=== PATIENT | female | born 1975 | race Caucasian/White ===

== ENCOUNTER 2018-12-19 08:24 | Day surgery (SDC) | payer BC, SELFPAY ==
[2018-12-17 16:12] VITALS: BMI 20.7
--- NOTE | 2018-12-19 | DI.RAD.S_ITS ---
PROCEDURE: XR ANKLE LT 2V INDICATIONS: LEFT ANKLE ORIF TECHNIQUE: 3 views of the left ankle and 2 views of the right ankle were acquired. COMPARISON: [facility] Outside Film, CR, XR TIBIA FIBULA LEFT, 12/13/2018, 15:01. SNO Outside Film, CR, XR ANKLE 3+ VIEWS LEFT, 12/13/2018, 15:01. FINDINGS: 5 intraoperative fluoroscopic views demonstrate a lateral fixation plate in the distal left fibular diaphysis with 2 fixation screws traversing the distal tibiofibular syndesmosis. No definite fracture visualized. IMPRESSION: 1. Intraoperative images demonstrate ORIF of the distal left fibula with fixation screws traversing the tibiofibular syndesmosis. Dictated by: Franco Alexandra M.D. on 12/19/2018 at 11:11 Approved by: Franco Alexandra M.D. on 12/19/2018 at 11:15
[2018-12-19 08:45] VITALS: BMI 21.4
--- NOTE | 2018-12-19 08:47 | PM.PREOP ---
Pre-operative Note Interval Note History & Physical reviewed/Exam performed by Physician: Yes Changes to H&P: No
[2018-12-19 09:01] VITALS: BP 113/79; PULSE 83; RESP 16; TEMP 36.3; O2SAT 95
[2018-12-19] MEDS: LACTATED RINGERS 1,000 ML 42 ML IV (09:02)
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
[2018-12-19] MEDS: CEFAZOLIN 2 GM/100 ML FROZ.PIGGY IV (09:30)
--- NOTE | 2018-12-19 09:54 | SUR.OPER ---
Supine on padded OR bed, head on pillow, arms secured on padded arm boards at <90 degrees abduction, legs uncrossed, safety belt at thigh, tape over blanket over lower legs.
[2018-12-19] MEDS: BUPIVACAINE 0.5% (PF) VIAL 30 ML INJ (10:07)
[2018-12-19 10:41] VITALS: BP 114/69; PULSE 87; RESP 14; TEMP 37.1; O2SAT 94
[2018-12-19 10:46] VITALS: BP 112/70; PULSE 80; RESP 14; O2SAT 98
[2018-12-19 10:53] VITALS: BP 117/66; PULSE 72; RESP 12; TEMP 37.1; O2SAT 97
[2018-12-19 10:55] VITALS: BP 114/79; PULSE 79; RESP 11; O2SAT 97
== END 2018-12-19 11:25 | disposition home or self-care (01) ==
PROVIDERS: PCP Nurse Practitioner Family; Visit Provider Orthopaedic Surgery Foot and Ankle Surgery
PROC: (CPT 27829; principal; 2018-12-19 09:45)
DX: S82.862A Displaced Maisonneuve's fracture of left leg, initial encounter for closed fracture (principal); S93.432A Sprain of tibiofibular ligament of left ankle, initial encounter; Y93.55 Activity, bike riding; W18.01XA Striking against sports equipment with subsequent fall, initial encounter
CPT/HCPCS: 27829; 73600; 76000; J0690; J1100; J2250; J2405; J2704; J3010

== ENCOUNTER → 2025-02-26 14:37 | Outpatient (CLI) | payer BC, SELFPAY ==
--- NOTE | 2025-02-26 14:39 | DI.MG.S_ITS ---
MM screening mammo BI: 02/26/2025. BI-RADS: 1 CLINICAL: 49-year old female for bilateral screening mammogram. Tyrer-Cuzick lifetime risk of 7.3%. No personal or first-degree family history of breast cancer. PRIOR EXAMS 07/16/2022. MAMMOGRAPHY TECHNIQUE: 2D and 3D (tomosynthesis) digital mammographic views obtained, with additional images as needed for full coverage. Current study was also evaluated with a Computer Aided Detection (CAD) system. DENSITY C. The breasts are heterogeneously dense, which may obscure small masses. MAMMOGRAPHY FINDINGS Bilateral: No suspicious mass, asymmetry, microcalcification, or other abnormality seen. IMPRESSION: * No evidence of malignancy. RECOMMENDATIONS Bilateral * Annual screening mammography. OVERALL ASSESSMENT CATEGORY BI-RADS-1: Negative. [employer] recommends annual screening mammography beginning at age 40 for women with average risk of breast cancer. ELECTRONICALLY SIGNED: Kate Adams M.D. on 02/28/2025 at 04:09:20 PM PT Interpreting Station ID: [id number]
== END ==
PROVIDERS: PCP Physician Assistant; Referring Provider Physician Assistant; Visit Provider Physician Assistant
DX: Z12.31 Encounter for screening mammogram for malignant neoplasm of breast (principal); R92.333 Mammographic heterogeneous density, bilateral breasts
CPT/HCPCS: 77063; 77067